=== PATIENT | male | born 1945 | race Caucasian/White ===

== ENCOUNTER 2018-12-03 14:08 | Emergency (ER) | payer OTHER ==
[~2018-12-03] VITALS: Ht 177.8 cm; Wt 72.7 kg
[~2018-12-03 14:08] MED LIST: Acetaminophen PO; CARB1TAB23 PO; CARB1TAB47 PO; CLIN300C10 PO; CLOB60CR2 TOP; CLOT30CR24 TOP; DIME50TA PO; DOCU-144 PO; DONE10TA7 PO; MEMA10TA PO; METO5TAB2 PO; NAPR-985 PO; NITR-58 PO; NYST15CR36 TOP; QUET25TA33 PO; RIVA10TA PO; SENN-120 PO; SERT50TA6 PO; [UNRECOGNIZED DRUG - OTHER] PO
[2018-12-03 14:13] VITALS: Ht 177.8 cm; Wt 72.7 kg
[2018-12-03 17:29] VITALS: BP 153/79; PULSE 84; RESP 18
== END 2018-12-03 18:20 | disposition home or self-care (01) ==
LOC: E/R 14:08
DX: L22 Diaper dermatitis (principal); I10 Essential (primary) hypertension; G20 Parkinson's disease; R40.2142 Coma scale, eyes open, spontaneous, at arrival to emergency department; R40.2242 Coma scale, best verbal response, confused conversation, at arrival to emergency department; R40.2362 Coma scale, best motor response, obeys commands, at arrival to emergency department; B37.9 Candidiasis, unspecified
CPT/HCPCS: 36415; 74176; 80053; 81001; 83690; 85025; 87086; Z7502